=== PATIENT | male | born 2000 | race Caucasian/White ===

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

== ENCOUNTER 2021-01-09 19:57 | Emergency (ER) | payer OTHER, SELFPAY ==
[2021-01-09 19:58] VITALS: BP 94/61; PULSE 66; RESP 18; TEMP 36.6; O2SAT 100; BMI 21.2
[2021-01-09] MEDS: Famotidine 20 MG Tablet PO (20:38)
[2021-01-09] MEDS: predniSONE 20 MG Tablet 40 MG PO (20:38)
[2021-01-09] MEDS: DiphenhydrAMINE 25 MG Capsule PO (20:38)
--- NOTE | 2021-01-09 20:55 | EX.ED.DYSGE1 ---
HPI History of Present Illness Chief Complaint: Allergic Reaction Informant: patient Narrative Narrative: Patient is a 20-year-old previously male who presents to the emergency department for allergic reaction. He states that he ate trips camping earlier today. Shortly after he developed hives. He felt mildly short of breath. He had a itchy throat. He feels like that is starting to improve at this point. Did not take anything for this. He is never had allergic reactions before in the past. He denies any chest pain. The hives extend basically over his entire body. No fevers or chills. No recent illness. PFSH PFSH Home Medications prednisone 40 mg PO DAILY 4 Days #8 tab 01/09/21 [Rx Last Taken Unknown] Allergy/AdvReac Type Severity Reaction Status Date / Time No Known Allergies Allergy Verified 01/09/21 20:01 Social History Smoking Status: Never smoker ROS ROS ED Constitutional Constitutional ED: Denies chills or fever(s) Eyes Eyes: Denies change in vision ENT ENT ED: Denies epistaxis or rhinorrhea Cardiovascular Cardiovascular: Denies chest pain or palpitations Respiratory/Chest Respiratory/Chest: Denies cough or dyspnea Gastrointestinal Gastrointestinal: Denies abdominal pain, diarrhea, nausea or vomiting Genitourinary Genitourinary ED: Denies dysuria, hematuria or urinary frequency Musculoskeletal Musculoskeletal: Denies back pain or neck pain Integumentary Reports rash Neurologic Neurologic: Denies dizziness, headache(s) or weakness EXAM Physical Exam Const Vital Signs: 01/09/21 19:58 Temperature 97.9 F Temperature Source Temporal Pulse Rate 66 Respiratory Rate 18 Blood Pressure 94/61 Blood Pressure Mean 72 Pulse Ox 100 Oxygen Delivery Method Room Air Positive well nourished and well developed General Appearance ED: well developed and NAD HEENT Reports normocephalic, head/scalp atraumatic and moist mucous membranes Eyes PERRL and EOMs intact bilaterally Neck supple General: Negative for tenderness Resp normal respiratory effort and clear to auscultation bilaterally Auscultation: Negative for rales, rhonchi or wheezes Cardio regular rate, regular rhythm and no murmurs GI normal to inspection, nondistended, normoactive bowel sounds and non-tender Palpation: soft; Negative for guarding or rebound tenderness present Extremity General Extremety ED: Negative for edema or tenderness General Extremity: Negative for edema Neuro oriented x3, CN's II-XII intact bilaterally and no sensory deficits noted Sensorium / Orientation: alert Motor Exam: strength 5/5 throughout Psych mental status grossly normal Skin Skin Narrative: Hives over lower and upper extremities, back and abdomen. No oral mucosal involvement. MDM MDM MDM Narrative Medical decision making narrative: Patient presents the ED for allergic reaction. This is the first time [facility]. He has had strep before and never had a reaction to it. He does have diffuse hives on exam. No stridor or wheezing. Blood pressure is 94/61 but he does appear to be resting comfortably in no acute distress. Will treat with prednisone, Pepcid and Benadryl. Will monitor here in the emergency department to make sure symptoms are resolving. Patient reevaluated hour later and his rash is improving significantly. Also most gone at this time. He is feeling much better. This time will discharge home in stable condition. He is given a prescription for prednisone. Continue to take Benadryl at home as needed. He is to follow-up with his PCP. Recommended avoiding this food in the future. Return precautions are reviewed with him. He understands and is agreeable this plan. All questions were answered. Clinical impression: #1 allergic reaction to food Discharge Plan Triage Chief Complaint: Allergic Reaction ED Provider: Aaron Moreno Dx/Rx/DC Orders Clinical Impression: Allergic reaction Instructions: ED Food Allergy Prescriptions: New prednisone 20 mg tablet 40 mg PO DAILY 4 Days Qty: 8 RF: 0 Primary Care Provider: Joselo Smith Referrals: Joselo Smith MD [Primary Care Provider] - 3-5 Days if not improving Disposition Disposition: Home, Self Care Discharge Date/Time: 01/09/21 21:55
[2021-01-09 21:53] VITALS: BP 102/67; PULSE 73; RESP 16; O2SAT 98
== END 2021-01-09 21:55 | disposition home or self-care (01) ==
PROVIDERS: Emergency Provider Emergency Medicine; PCP Pediatrics
DX: T78.1XXA Other adverse food reactions, not elsewhere classified, initial encounter (principal); L50.0 Allergic urticaria; R06.02 Shortness of breath; X58.XXXA Exposure to other specified factors, initial encounter; Z79.52 Long term (current) use of systemic steroids
CPT/HCPCS: 99283; A4216